=== PATIENT | female | born 1990 | race Caucasian/White ===

== ENCOUNTER 2020-07-08 22:37 | Emergency (ER) | payer SELFPAY ==
[2020-07-08] MEDS ORDERED: Acetaminophen/HYDROcodone 325-5 MG Tab PO ONE (22:38)
[2020-07-08] MEDS ORDERED: Amoxicillin 500 MG Cap PO ONE (22:38)
--- NOTE | 2020-07-09 04:04 | ER ---
DATE SEEN: 07/08/2020 CHIEF COMPLAINT: Tooth pain. HISTORY OF PRESENT ILLNESS: This is a 30-year-old female with tooth pain for 2 days, left upper molar, moderate to severe. Nothing seems to help. REVIEW OF SYSTEMS: No fever or sore throat. ALLERGIES: No known medication allergies. PHYSICAL EXAMINATION: VITAL SIGNS: Normal vital signs. GENERAL: Not in distress. THROAT: Oral exam revealed poor dentition with dental caries and a huge cavity in the left upper molar. IMPRESSION: Dental infection. TREATMENT: Penicillin and hydrocodone 1 tablet q.i.d. p.r.n. PLAN: She has an appointment with a dentist in the next couple of days. /[id number] JOIE/ODILON
== END 2020-07-08 23:25 | disposition home or self-care (01) ==
LOC: FB.ED 22:37
DX: K04.7 Periapical abscess without sinus (principal)
CPT/HCPCS: 99282; A9270-GY